=== PATIENT | male | born 1960 | race Caucasian/White ===

== ENCOUNTER 2017-08-28 09:32 | Day surgery (SDC) | payer OTHER ==
[~2017-08-28] VITALS: Ht 185.4 cm; Wt 123.5 kg
[~2017-08-28 09:32] MED LIST: FLUO20 PO; PANT40; RANI150 PO; TRIHYD5075 PO
== END 2017-08-28 12:03 | disposition home or self-care (01) ==
LOC: ORSCSDS 09:32
PROVIDERS: Surgery
PROC: 0DBM8ZX Excision of Descending Colon, Via Natural or Artificial Opening Endoscopic, Diagnostic (ICD-10-PCS; principal; 2017-08-28 11:00)
PROC: 0DBP8ZX Excision of Rectum, Via Natural or Artificial Opening Endoscopic, Diagnostic (ICD-10-PCS; principal; 2017-08-28 11:00)
DX: Z12.11 Encounter for screening for malignant neoplasm of colon (principal); K62.1 Rectal polyp; D12.4 Benign neoplasm of descending colon; Z86.010 Personal history of colon polyps; I10 Essential (primary) hypertension; Z80.0 Family history of malignant neoplasm of digestive organs; Z79.899 Other long term (current) drug therapy
CPT/HCPCS: 88305

== ENCOUNTER 2019-08-01 22:34 | Emergency (ER) | payer OTHER ==
[~2019-08-01] VITALS: Ht 188 cm; Wt 122.5 kg
[2019-08-02] MEDS ORDERED: Percocet 5-3251 EACH PO (00:52)
== END 2019-08-02 01:27 | disposition home or self-care (01) ==
LOC: ER 22:34
DX: S93.05XA Dislocation of left ankle joint, initial encounter (principal); W19.XXXA Unspecified fall, initial encounter; Z88.8 Allergy status to other drugs, medicaments and biological substances; Z88.6 Allergy status to analgesic agent; Z79.899 Other long term (current) drug therapy
CPT/HCPCS: 27788; 73600; 96374-59; 96375; 96375-59; 96376; 99152; 99283-25; A9270; J1170; J1885; J2704; J3010; J7030

== ENCOUNTER 2019-08-04 07:34 | Observation (INO) | payer OTHER ==
[~2019-08-04] VITALS: Ht 188 cm; Wt 122.5 kg
[~2019-08-04 07:34] MED LIST changes: +Percocet 5-3251 EACH PO
[2019-08-04 09:08] LABS: BASOPHILS ABSOLUTE AUTO 0.05 K/mm3 (0.00-0.23); BASOPHILS PERCENT AUTO 1 % (0-2); EOSINOPHILS ABSOLUTE AUTO 0.05 K/mm3 (0.00-0.68); EOSINOPHILS PERCENT AUTO 1 % (0-6); Hematocrit 41.8 % (37.0-53.0); Hemoglobin 14.1 g/dL (13.5-17.5); IMMATURE GRAN ABSOLUTE AUTO 0.07 K/mm3 (0.00-0.10); IMMATURE GRAN PERCENT AUTO 1 % (0-1); LYMPHOCYTES ABSOLUTE AUTO 1.19 K/mm3 (0.84-5.20); LYMPHOCYTES PERCENT AUTO 11 % (21-46); MONOCYTES ABSOLUTE AUTO 0.85 K/mm3 (0.16-1.47); MONOCYTES PERCENT AUTO 8 % (4-13); Mean Corpuscular HGB 29.4 pg (26.0-34.0); Mean Corpuscular HGB Conc 33.7 g/dL (31.5-36.5); Mean Corpuscular Volume 87 fL (80-100); Mean Platelet Volume 9.1 fL (9.1-12.4); NEUTROPHILS ABSOLUTE AUTO 8.24 K/mm3 (1.96-9.15); NEUTROPHILS PERCENT AUTO 79 % (41-73); Platelet Count 172 K/mm3 (150-400); RDW Coefficient Variation 14.1 % (11.7-14.2); RDW Standard Deviation 45.1 fL (35.1-46.3); White Blood Cell Count 10.45 K/mm3 (4.00-11.30)
[2019-08-04 09:32] LABS: Alanine Aminotransfer (ALT/SGP 60 U/L (12-78); Albumin, Blood 3.6 g/dL (3.4-5.0); Albumin/Globulin Ratio 0.9 (0.8-1.8); Alk Phos 57 U/L (50-136); Anion Gap 7 mmol/L (6-16); Aspartate Aminotrans (AST/SGOT 91 U/L (12-37); Bilirubin, Total 4.7 mg/dL (0.1-1.0); Blood Urea Nitrogen 19 mg/dL (8-24); CO2, Blood 27 mmol/L (21-32); Calcium, Blood 8.9 mg/dL (8.5-10.1); Chloride, Blood 100 mmol/L (98-108); Globulin, Blood 3.9 g/dL (2.2-4.0); Glomerular Filtration Rate >60 (60-); Glucose, Blood 113 mg/dL (70-99); Sodium, Blood 134 mmol/L (136-145); Total Protein, Blood 7.5 g/dL (6.4-8.2)
--- NOTE | 2019-08-04 15:12 | NUR ---
PT TO DAY SURGERY AT APROX 1510.
--- NOTE | 2019-08-04 17:21 | NUR ---
"DAY SURGERY RN | TO OR BOTH DOCTORS AND WHARF OPERATOR HAVE SEEN. REPORT OFF TO TIMOTHY LOYA. NO ISSUES."
--- NOTE | 2019-08-04 20:28 | NUR ---
RECEIVED REPORT FROM VINCENZO NEGRON IN PACU. PT ARRIVED AT THE FLOOR AWAKE, ALERT, AND ORIENTED. 4 L VIA NC, LR INFUSING TO IV IN R FOREARM. FAMILY AT BEDSIDE. BRISK CAPILLARY REFILL IN LEFT TOES, PT REPORTS SENSTAION INTACT. DR. HOOPER DID PLACE A BLOCK IN THE LLE. DRESSING C/D&I. DENIES PAIN, N/V AT THIS TIME.
--- NOTE | 2019-08-04 23:54 | NUR ---
DRESSING TO LATERAL ASPECT OF LEFT ANKLE CHANGED D/T SATURATION AND LEAKING ONTO LEANDRO WRAP.
[2019-08-05 04:14] LABS: BASOPHILS ABSOLUTE AUTO 0.02 K/mm3 (0.00-0.23); BASOPHILS PERCENT AUTO 0 % (0-2); EOSINOPHILS PERCENT AUTO 0 % (0-6); Hemoglobin 12.4 g/dL (13.5-17.5); IMMATURE GRAN ABSOLUTE AUTO 0.05 K/mm3 (0.00-0.10); IMMATURE GRAN PERCENT AUTO 1 % (0-1); LYMPHOCYTES ABSOLUTE AUTO 1.06 K/mm3 (0.84-5.20); LYMPHOCYTES PERCENT AUTO 10 % (21-46); MONOCYTES ABSOLUTE AUTO 0.69 K/mm3 (0.16-1.47); MONOCYTES PERCENT AUTO 7 % (4-13); Mean Corpuscular HGB Conc 32.6 g/dL (31.5-36.5); Mean Corpuscular Volume 89 fL (80-100); Mean Platelet Volume 9.1 fL (9.1-12.4); NEUTROPHILS PERCENT AUTO 83 % (41-73); Platelet Count 164 K/mm3 (150-400); RDW Coefficient Variation 14.4 % (11.7-14.2); RDW Standard Deviation 45.6 fL (35.1-46.3); Red Blood Cell Count 4.28 M/mm3 (4.30-5.90); White Blood Cell Count 10.52 K/mm3 (4.00-11.30)
[2019-08-05 04:35] LABS: Alanine Aminotransfer (ALT/SGP 47 U/L (12-78); Albumin/Globulin Ratio 0.8 (0.8-1.8); Alk Phos 47 U/L (50-136); Anion Gap 4 mmol/L (6-16); Aspartate Aminotrans (AST/SGOT 70 U/L (12-37); Bilirubin, Total 1.4 mg/dL (0.1-1.0); Blood Urea Nitrogen 20 mg/dL (8-24); Bun/Creatinine Ratio 19.2 (12.0-20.0); CO2, Blood 30 mmol/L (21-32); Calcium, Blood 8.4 mg/dL (8.5-10.1); Chloride, Blood 101 mmol/L (98-108); Creatinine, Blood 1.04 mg/dL (0.60-1.20); Globulin, Blood 3.8 g/dL (2.2-4.0); Glomerular Filtration Rate >60 (60-); Glucose, Blood 128 mg/dL (70-99); Magnesium, Blood 2.7 mg/dL (1.6-2.4); Potassium, Blood 4.5 mmol/L (3.5-5.5); Sodium, Blood 135 mmol/L (136-145); Total Protein, Blood 6.8 g/dL (6.4-8.2)
[2019-08-05] MEDS ORDERED: Percocet 10-321 EACH PO (05:11)
--- NOTE | 2019-08-05 05:32 | NUR ---
SHIFT SUMMARY: JIM HAS NOT SLEPT DURING THE NIGHT. HE REPORTS THAT HIS PAIN IS CONTROLLED, BUT THAT HE IS UNABLE TO GET COMFORTABLE IN BED. HE STATES THAT HE FEELS HE WILL BE ABLE TO REST AT HOME. HIS IS RETURNING AROUND 0830 TO PICK HIM UP. HE HAS BRISK CAPILLARY REFILL IN THE TOES ON HIS LEFT FOOT AND REPORTS SENSATION INTACT TO LIGHT TOUCH. DRESSING WITH SMALL AMOUNT SS DRAINAGE, INTACT WITH LEANDRO WRAP ABOVE. EXTREMITY ICED AND ELEVATED. HE IS TOLERATING PO INTAKE WELL. IV TO RIGHT FOREARM PATENT. WAS GIVEN PRESCRIPTION LAST NIGHT. HE IS ABLE TO MAKE HIS NEEDS KNOWN. HE IS VOIDING IN THE URINAL WITHOUT DIFFICULTY. HE IS LYING IN BED WITH HIS CALL LIGHT IN REACH.
--- NOTE | 2019-08-05 10:29 | NUR ---
DISCHARGE SUMMARY PT D/C HOME TODAY VIA WHEELCHAIR AT 0930 WITH FAMILY. DENIED PAIN OR NEED OF PAIN MEDICATION. LLE ELEVATED W/ICE THERAPY PRN. DRESSING CHANGED TO LATERAL LEFT ANKLE, EDUCATED FAMILY ON DRESSING CHANGE. DRESSING TO MEDIAL LEFT ANKLE C/D/I. PT TOLERATED SMALL AMOUNT OF BREAKFAST. REPORTS VOIDING W/OUT DIFFICULTY. WORKED WITH THERAPY TODAY. DISCHARGE INSTRUCTIONS, DRESSINGS, AND PERSONAL BELONGINGS PROVIDED TO PT/FAMILY PRIOR TO D/C HOME. PT/FAMILY VERBALIZED UNDERSTANDING OF DISCUSSION AND DECLINED ANY CONCERNS. ENCOURAGED TO CALL IF FURTHER ISSUES ARISE.
== END 2019-08-05 09:33 | disposition home or self-care (01) ==
LOC: ER 07:34 → SURS 07:35
PROVIDERS: Emergency Medicine; Orthopaedic Surgery; ADMIT Internal Medicine
PROC: 0QSK04Z Reposition Left Fibula with Internal Fixation Device, Open Approach (ICD-10-PCS; principal; 2019-08-04 17:30)
DX: S82.842A Displaced bimalleolar fracture of left lower leg, initial encounter for closed fracture (principal); E78.5 Hyperlipidemia, unspecified; K21.9 Gastro-esophageal reflux disease without esophagitis; F32.9 Major depressive disorder, single episode, unspecified; I10 Essential (primary) hypertension; F17.200 Nicotine dependence, unspecified, uncomplicated; W19.XXXA Unspecified fall, initial encounter; E66.9 Obesity, unspecified; Z79.899 Other long term (current) drug therapy; Z68.34 Body mass index [BMI] 34.0-34.9, adult; Z88.6 Allergy status to analgesic agent; Z88.8 Allergy status to other drugs, medicaments and biological substances
CPT/HCPCS: 36415; 71046; 73600; 73610; 80053; 83735; 85025; 93005; 93010; 96365; 96372; 96376; 97161; 97530; 99284-25; C1713; G0378; J0690; J1100; J1650; J1885; J2250; J2370; J2405; J2704; J3010; J7120

== ENCOUNTER → 2020-08-22 | Outpatient (CLI) | payer OTHER ==
[~2020-08-22] MED LIST changes: +CENTRUM SILVER1 EAC2 PO; +DYAZIDE 37.5-21 EACH PO; +Percocet 10-321 EACH PO; +Prozac20 MG PO
== END | disposition home or self-care (01) ==
LOC: LAB 12:30 → LAB SHORT 12:30 → LAB FUT 08-20 09:45 → EDSTATUS 08-20 09:45
DX: K52.9 Noninfective gastroenteritis and colitis, unspecified (principal)
CPT/HCPCS: 87015; 87045; 87046; 87177; 87205; 87209; 87329; 87493; 87899

== ENCOUNTER 2020-09-16 12:23 | Day surgery (SDC) | payer OTHER ==
[~2020-09-16] VITALS: Ht 185.4 cm; Wt 127.4 kg
== END 2020-09-16 14:37 | disposition home or self-care (01) ==
LOC: ORSCSDS 12:23
PROVIDERS: Surgery
PROC: 0DBL8ZX Excision of Transverse Colon, Via Natural or Artificial Opening Endoscopic, Diagnostic (ICD-10-PCS; principal; 2020-09-16 13:30)
DX: R19.4 Change in bowel habit (principal); D12.3 Benign neoplasm of transverse colon; Z80.0 Family history of malignant neoplasm of digestive organs; I10 Essential (primary) hypertension; Z79.899 Other long term (current) drug therapy
CPT/HCPCS: 88305; J2704; J7120

== ENCOUNTER → 2021-10-24 | Outpatient (CLI) | payer OTHER | END | disposition home or self-care (01) | LOC: LAB 18:39 → LAB SHORT 18:39 | DX: R30.0 Dysuria (principal) | CPT/HCPCS: 87086 ==

== ENCOUNTER 2021-11-10 08:03 | Day surgery (SDC) | payer OTHER ==
[~2021-11-10] VITALS: Ht 185.4 cm; Wt 129.9 kg
[~2021-11-10 08:03] MED LIST changes: +CYCL10 PO; +PANT20 PO; +Prinivil10 MG PO
--- NOTE | 2021-11-10 08:56 | NUR ---
Ambulatory in Day Surgery History, Chart, Medications and Allergies reviewed before start of procedure.Patient confirms NPO status and agrees with scheduled surgery. Pre-Op teaching done. Pt verbalizes understanding. Patient States Post-Procedure ride home has been arranged.
--- NOTE | 2021-11-10 09:32 | NUR ---
11/10/21 0932 Sera Mckee History, Chart, Medications and Allergies reviewed before start of procedure. Patient confirms NPO status and agrees with scheduled surgery. 3-LEAD EKG REVIEWED WITH PHYSICIAN PRIOR TO START OF PROCEDURE. MONITOR INTACT WITH CONTINUOUS PULSE OXIMETRY AND INTERMITTENT BP. PATIENT DETERMINED TO BE ASA APPROPRIATE FOR PROPOFOL SEDATION PRIOR TO START OF PROCEDURE BY DR. STRICKLAND
== END 2021-11-10 10:39 | disposition home or self-care (01) ==
LOC: ORSCMMR 08:03
PROVIDERS: Surgery
PROC: 0DBL8ZX Excision of Transverse Colon, Via Natural or Artificial Opening Endoscopic, Diagnostic (ICD-10-PCS; principal; 2021-11-10 09:30)
DX: Z12.11 Encounter for screening for malignant neoplasm of colon (principal); Z86.010 Personal history of colon polyps; Z80.0 Family history of malignant neoplasm of digestive organs; D12.3 Benign neoplasm of transverse colon; K57.30 Diverticulosis of large intestine without perforation or abscess without bleeding; I10 Essential (primary) hypertension; E66.9 Obesity, unspecified; Z68.38 Body mass index [BMI] 38.0-38.9, adult; Z79.899 Other long term (current) drug therapy
CPT/HCPCS: 88305; J2704; J7120

== ENCOUNTER → 2021-12-23 | Outpatient (CLI) | payer OTHER ==
[2021-12-23 13:22] LABS: BASOPHILS ABSOLUTE AUTO 0.06 K/mm3 (0.00-0.23); BASOPHILS PERCENT AUTO 1 % (0-2); EOSINOPHILS ABSOLUTE AUTO 0.15 K/mm3 (0.00-0.68); EOSINOPHILS PERCENT AUTO 2 % (0-6); Hematocrit 44.2 % (37.0-53.0); IMMATURE GRAN ABSOLUTE AUTO 0.01 K/mm3 (0.00-0.10); IMMATURE GRAN PERCENT AUTO 0 % (0-1); LYMPHOCYTES ABSOLUTE AUTO 1.33 K/mm3 (0.84-5.20); LYMPHOCYTES PERCENT AUTO 20 % (21-46); MONOCYTES ABSOLUTE AUTO 0.48 K/mm3 (0.16-1.47); MONOCYTES PERCENT AUTO 7 % (4-13); Mean Corpuscular HGB 28.8 pg (26.0-34.0); Mean Corpuscular HGB Conc 33.9 g/dL (31.5-36.5); Mean Corpuscular Volume 85 fL (80-100); Mean Platelet Volume 9.7 fL (9.1-12.4); NEUTROPHILS ABSOLUTE AUTO 4.77 K/mm3 (1.96-9.15); NEUTROPHILS PERCENT AUTO 70 % (41-73); Platelet Count 131 K/mm3 (150-400); RDW Coefficient Variation 13.7 % (11.7-14.2); RDW Standard Deviation 42.3 fL (35.1-46.3)
[2021-12-23 13:42] LABS: Albumin/Globulin Ratio 1.1 (0.8-1.8); Bilirubin, Total 1.9 mg/dL (0.1-1.0); Bun/Creatinine Ratio 18.4 (12.0-20.0); Calcium, Blood 9.2 mg/dL (8.5-10.1); Creatinine, Blood 1.03 mg/dL (0.60-1.20); Globulin, Blood 3.8 g/dL (2.2-4.0); Total Protein, Blood 7.8 g/dL (6.4-8.2)
== END | disposition home or self-care (01) ==
LOC: LAB SHORT 13:18 → LAB 13:18
PROVIDERS: Physician Assistant
DX: R10.30 Lower abdominal pain, unspecified (principal)
CPT/HCPCS: 80053; 85025

== ENCOUNTER 2023-01-02 06:44 | Day surgery (SDC) | payer MEDICARE, BC ==
[~2023-01-02] VITALS: Ht 185.4 cm; Wt 130.8 kg
[2023-01-02] MEDS ORDERED: DYAZIDE 37.5-21 EACH (07:03)
[2023-01-02] MEDS ORDERED: FISH OIL 1,2001 EAC7 (07:04)
[2023-01-02] MEDS ORDERED: INDOMETHACIN (07:04)
[2023-01-02 08:30] VITALS: BP 227/101
--- NOTE | 2023-01-02 08:31 | NUR ---
01/02/23 0831 Delores Araiza IV REMOVED INTACT, WNL AT 0822 C LR 900.
--- NOTE | 2023-01-02 08:42 | NUR ---
01/02/23 0842 IONA RIOS EXAM CXD BY D/T PT HTN. END NOTE ORSC.RDS
--- NOTE | 2023-01-02 08:49 | NUR ---
01/02/23 0849 IONA RIOS EXAM CXD PER DR STRICKLAND D/T PT CONT. HTN. END NOTE ORSC.RDS
== END 2023-01-02 08:29 | disposition home or self-care (01) ==
LOC: ORSCSDS 06:44
PROVIDERS: Surgery
PROC: 0DJD8ZZ Inspection of Lower Intestinal Tract, Via Natural or Artificial Opening Endoscopic (ICD-10-PCS; principal; 2023-01-02 08:00)
DX: Z12.11 Encounter for screening for malignant neoplasm of colon (principal); Z86.010 Personal history of colon polyps; Z53.9 Procedure and treatment not carried out, unspecified reason; I10 Essential (primary) hypertension
CPT/HCPCS: J2704; J7120

== ENCOUNTER 2023-02-27 09:12 | Day surgery (SDC) | payer MEDICARE, BC ==
[~2023-02-27] VITALS: Ht 185.4 cm; Wt 129.8 kg
[~2023-02-27 09:12] MED LIST changes: +DYAZIDE 37.5-21 EACH; +FISH OIL 1,2001 EAC7; +INDOMETHACIN
[2023-02-27] MEDS ORDERED: AMLO5 PO (09:53)
--- NOTE | 2023-02-27 09:56 | NUR ---
02/27/23 0956 Armando Miranda CALL LIGHT WITHIN REACH
[2023-02-27 11:26] VITALS: BP 136/81
== END 2023-02-27 11:22 | disposition home or self-care (01) ==
LOC: ORSCSDS 09:12
PROVIDERS: Surgery
PROC: 0DJD8ZZ Inspection of Lower Intestinal Tract, Via Natural or Artificial Opening Endoscopic (ICD-10-PCS; principal; 2023-02-27 10:30)
DX: Z12.11 Encounter for screening for malignant neoplasm of colon (principal); Z86.010 Personal history of colon polyps; K57.30 Diverticulosis of large intestine without perforation or abscess without bleeding; I10 Essential (primary) hypertension; E66.9 Obesity, unspecified; Z68.38 Body mass index [BMI] 38.0-38.9, adult; Z79.899 Other long term (current) drug therapy
CPT/HCPCS: J2250; J2405; J2704; J7120